=== PATIENT | male | born 1940 | race Caucasian/White ===

== ENCOUNTER 2020-06-05 15:12 | Emergency (ER) | payer BC, SELFPAY ==
[2020-06-05 15:14] VITALS: BP 110/66; PULSE 67; RESP 17; TEMP 36.8; O2SAT 97
[2020-06-05 15:19] VITALS: PULSE 65
--- NOTE | 2020-06-05 15:57 | ECG_ITS ---
Measurements Intervals [place] Rate: 61 P: 28 MI: 198 QRS: 21 QRSD: 89 T: 31 QT: 408 QTc: 411 Interpretive Statements SINUS RHYTHM EARLY PRECORDIAL R/S TRANSITION BORDERLINE ECG Electronically Signed On 06-06-2020 13:28:55 CDT by Efe Cash D.O.
--- NOTE | 2020-06-05 15:58 | ED.GENADULT ---
HPI - General Adult General Chief complaint: Unspecified Stated complaint: dizziness Time Seen by Provider: 06/05/20 15:28 History of Present Illness HPI narrative: 79 yo male BIBEMS after syncope. He was working out in the heat when he began to develop leg cramps. He then got light headed. He does not believe that he passed out, but the person who was with him at the time says that he believes that he did. He got less than 500ml NS during transport and says that he is feeling back to normal at this time. No chest pain, fever, palpitations. Related Data Home Medications Medication Instructions Recorded Confirmed amlodipine 5 mg PO DAILY 06/05/20 aspirin 81 mg PO DAILY 06/05/20 atorvastatin 20 mg PO DAILY 06/05/20 benazepril [Lotensin] 40 mg PO DAILY 06/05/20 fenofibrate 160 mg PO DAILY 06/05/20 hydrochlorothiazide 25 mg PO DAILY 06/05/20 loratadine 10 mg PO DAILY 06/05/20 metformin 500 mg PO BID 06/05/20 esbknethjbfb-otjizcwn-turdcc 1 tablet PO DAILY 06/05/20 [Multivitamin 50 Plus] niacin 500 mg PO BID 06/05/20 omega 2-deo-iba-fish oil [Fish Oil] 1 cap PO 06/05/20 vitamin B82-wmwjs acid 1 tablet PO DAILY 06/05/20 Allergies Allergy/AdvReac Type Severity Reaction Status Date / Time No Known Allergies Allergy Mild Unverified 06/05/20 15:21 Review of Systems Review of Systems: All systems reviewed & are unremarkable except as noted in HPI and below Constitutional: Constitutional: Denies chills, Denies fever(s) and Denies weakness Cardiovascular: Cardiovascular: Denies chest pain Respiratory: Respiratory: Denies dyspnea Gastrointestinal: Gastrointestinal: Denies diarrhea, Denies nausea and Denies vomiting Genitourinary: Genitourinary: Denies dysuria Musculoskeletal: Musculoskeletal: Denies back pain Neurologic: Reports dizziness and Reports syncope [facility] Social History Social History Gender identity (if verbalized by the patient): Male Exam Const: General: healthy appearing, no acute distress and alert Orientation/consciousness: patient oriented x3 HENMT: Head: normal to inspection Eyes: Pupils: Equal, round and reactive pupils present Neck: Neck: normal visual inspection and no lymphadenopathy Chest: Chest palpation & inspection: no tenderness Resp: Effort & Inspection: normal respiratory effort Auscultation: clear to auscultation bilaterally, no rales, no rhonchi and no wheezes Cardio: Jugular venous distension: no JVD Rate: regular rate Rhythm: regular rhythm Heart sounds: no murmurs GI: Inspection: non-distended GI Palp: Yes Soft to palpation and No Tenderness to palpation present (GI) Skin: General skin exam: normal color Neuro: General: patient oriented x3 and moves all extremities Speech: normal speech Extrem: General: no edema Psych: Appearance: well kempt Affect: normal affect Course Vital Signs Vital signs: Vital Signs Temperature 36.8 C 06/05/20 15:14 Pulse Rate 67 06/05/20 15:14 Respiratory Rate 17 06/05/20 15:14 Blood Pressure 110/66 06/05/20 15:14 Pulse Oximetry 97 06/05/20 15:14 Temperature 36.8 C 06/05/20 15:14 Pulse Rate 72 06/05/20 18:37 Respiratory Rate 20 06/05/20 18:37 Blood Pressure 118/73 06/05/20 18:37 Pulse Oximetry 98 06/05/20 18:37 Medical Decision Making MDM Narrative Medical decision making narrative: BNP and creatinine both very elevated. I discussed these findings with Dr. Carter. He does not think that he has a h/o renal dysfunction. He is okay with discharge. He will review his chart and follow-up with him tomorrow. Medical Records Medical records reviewed: Yes I reviewed the patient's medical records. Vital Signs Vital Signs: Vital Signs Temperature 36.8 C 06/05/20 15:14 Pulse Rate 67 06/05/20 15:14 Respiratory Rate 17 06/05/20 15:14 Blood Pressure 110/66 06/05/20 15:14 Pulse Oximetry 97 06/05/20 15:14
[2020-06-05] MEDS: SODIUM CHLORIDE 0.9% IV 1,000 ML 999 ML IV CONT (16:10)
[2020-06-05 16:23] LABS: Basophils Percent Auto 0.1 % (0.2-1.2); Eosinophils Absolute Auto 0.1 K/mm3 (0-0.3); Eosinophils Percent Auto 1.5 % (0-4.4); Hematocrit 34.9 % (42.0-52.0); Hemoglobin 11.7 g/dL (14.0-18.0); Immature Granulocyte Absolute 0.03 K/mm3 (0.00-0.031); Immature Granulocyte Percent A 0.4 % (0-0.5); Lymphocytes Absolute Auto 0.85 K/mm3 (0.9-3.2); Lymphocytes Percent Auto 12.4 % (18.3-44.2); Mean Corpuscular HGB Conc 33.5 g/dl (32-36); Mean Corpuscular Hemoglobin 33.1 pg (26-34); Mean Corpuscular Volume 98.6 fl (80-100); Mean Platelet Volume 11.4 fl (7.4-10.4); Monocytes Absolute Auto 0.6 K/mm3 (0.1-0.6); Monocytes Percent Auto 8.3 % (2.6-8.5); Neutrophils Absolute Auto 5.3 K/mm3 (1.3-6.7); Neutrophils Percent Auto 77.3 % (45.5-73.1); Platelet Count Result 217 k/mm3 (150-375); Red Blood Count 3.54 M/mm3 (4.6-6.20); Red Cell Distribution Width 13.4 % (11.5-14.5); White Blood Count 6.9 K/mm3 (4.5-10.0)
[2020-06-05 16:34] LABS: Anion Gap 14.4 mmol/L (7-16); Blood Urea Nitrogen 33 mg/dL (9-20); Calcium 9.8 mg/dL (8.4-10.2); Carbon Dioxide 27 mmol/L (22-30); Chloride 99 mmol/L (98-107); Estimated CRCL calculation 24 ml/min; Estimated Glomerular Filt Rate 23; Glucose 128 mg/dL (75-110); Potassium 4.4 mmol/L (3.4-5.0); Sodium 136 mmol/L (137-145)
[2020-06-05 17:16] VITALS: BP 116/66; PULSE 67
[2020-06-05 17:17] VITALS: BP 131/74; PULSE 74
[2020-06-05 17:19] VITALS: BP 121/67; PULSE 79
[2020-06-05 18:37] VITALS: BP 118/73; PULSE 72; RESP 20; O2SAT 98
== END 2020-06-05 18:38 | disposition home or self-care (01) ==
PROVIDERS: Emergency Provider Emergency Medicine; PCP Family Medicine Adolescent Medicine
DX: N17.9 Acute kidney failure, unspecified (principal); R55 Syncope and collapse; Z79.82 Long term (current) use of aspirin
CPT/HCPCS: 36415; 80048; 85025; 93005; 96360; 99284; J7030

== ENCOUNTER → 2022-01-12 08:14 | Outpatient (CLI) | payer BC, SELFPAY ==
--- NOTE | ~2022-01-12 | MR_ITS ---
EXAMINATION: MR lumbar spine wo con DATE: 01/12/2022 08:51 INDICATION: Right-sided sciatica. Low back pain. TECHNIQUE: Magnetic resonance imaging (MRI) of the lumbar spine was performed without intravenous con trast. Sequences included sagittal T2-weighted FSE, sagittal T2-weighted FS FSE, sagittal T1-weighted FSE, and axial T2-weighted FSE. COMPARISON: Lumbar spine MRI 09/03/2013 FINDINGS: There is 13 degrees dextroscoliosis of lumbar spine. There is 5 mm anterolisthesis of L4 on L5. There are Schmorl's nodes at multiple levels. There is moderately decreased disc height from L1- L2 through L4-L5 and severely decreased disc height at L5-S1. The distal spinal cord signal intensity is normal. The conus medullaris is at L1. There is a 1.8 cm cyst in right kidney. The following disc levels are specifically discussed: L1-L2: The disc is bulging and has an annular fissure. There is mild bilateral facet joint osteoarthr itis. There is moderate right and mild left neural foraminal stenosis. There is mild central canal st enosis. L2-L3: The disc is bulging and has an annular fissure. There is mild bilateral facet joint osteoarthr itis. There is mild right and moderate left neural foraminal stenosis. There is mild central canal st enosis. L3-L4: The disc is bulging and has an annular fissure. There is severe bilateral facet joint osteoart hritis with synovial cyst on the right. There is moderate bilateral neural foraminal stenosis. There is mild central canal stenosis at the midline. There is severe stenosis of right lateral recess and m oderate stenosis of left lateral recess. L4-L5: The disc is bulging and has an annular fissure. There is severe bilateral facet joint osteoart hritis. There is moderate bilateral neural foraminal stenosis. There is mild central canal stenosis. L5-S1: The disc is bulging and has an annular fissure. There is severe bilateral facet joint osteoart hritis. There is severe right and mild left neural foraminal stenosis. There is mild central canal st enosis. IMPRESSION: 1. Severe lumbar spondylosis, worsened from 09/03/2013. Reviewed, dictated and finalized at location A. CODE STRIPER
== END ==
PROVIDERS: PCP Family Medicine Adolescent Medicine; Visit Provider Family Medicine Adolescent Medicine
DX: M54.31 Sciatica, right side (principal); M48.061 Spinal stenosis, lumbar region without neurogenic claudication; M47.816 Spondylosis without myelopathy or radiculopathy, lumbar region
CPT/HCPCS: 72148

== ENCOUNTER → 2022-05-31 12:52 | Outpatient (CLI) | payer BC, SELFPAY ==
--- NOTE | ~2022-05-31 | MR_ITS ---
EXAMINATION: MR brain IAC wo con DATE: 05/31/2022 14:31 INDICATION: Recurrent episodes of vertigo and nausea. TECHNIQUE: Magnetic resonance imaging (MRI) of the brain, brainstem, and internal auditory canals was performed without intravenous contrast. COMPARISON: None. FINDINGS: There is no intracranial hemorrhage, acute infarction, or abnormal intracranial mass lesion . The ventricles are normal in size. There is mild mucosal thickening in the paranasal sinuses. There is a mucous retention cyst in right maxillary sinus. The internal auditory canals and inner and midd le ears are normal. The mastoid air cells are normal. The orbits are normal. IMPRESSION: 1. Normal brain. Reviewed, dictated and finalized at location A. IMPRESSION: 1. Normal brain.
== END ==
PROVIDERS: PCP Family Medicine Adolescent Medicine; Visit Provider Family Medicine Adolescent Medicine
DX: R42 Dizziness and giddiness (principal); R11.0 Nausea
CPT/HCPCS: 70551

== ENCOUNTER 2022-08-31 16:25 | Emergency (ER) | payer BC, SELFPAY ==
[2022-08-31 16:47] VITALS: BP 134/85; PULSE 82; RESP 16; TEMP 36.6; O2SAT 98
[2022-08-31 20:52] VITALS: BP 113/69; PULSE 71; RESP 16; O2SAT 100
[2022-08-31 21:31] VITALS: BP 97/69; PULSE 71; RESP 17; O2SAT 97
[2022-08-31 21:46] VITALS: BP 118/70; PULSE 70; RESP 24; O2SAT 96
[2022-08-31 22:31] VITALS: BP 111/73; PULSE 66; RESP 20; O2SAT 98
--- NOTE | 2022-08-31 22:43 | ED.MALEGU ---
HPI - Male Genitourinary General Chief complaint: Urogenital-Male <Miya Stockton PA-C - Last Filed: 09/01/22 04:41> Stated complaint: unable to urinate after surgery today <Miya Stockton PA-C - Last Filed: 09/01/22 04:41> Time Seen by Provider: 08/31/22 20:49 <JT Wang Last Filed: 09/01/22 04:41> Source: patient <JT Wang Last Filed: 09/01/22 04:41> Mode of arrival: ambulatory <JT Wang Last Filed: 09/01/22 04:41> Limitations: no limitations <JT Wang Last Filed: 09/01/22 04:41> History of Present Illness HPI Narrative: Patient is a 81-year-old male who presents to the ED with report of urinary retention. Patient reports he had an outpatient lumbar microdecompression performed at a clinic in [place], [place] this morning. He was unable to urinate initially after the surgery and was told that he did not urinate by 4 PM today, to come to an emergency room. Patient last urinated around 7:15 AM. He has tried several times, but unable to pass any urine. He denies any previous history of urinary retention, BPH. He denies any back pain, abdominal pain, nausea, vomiting, fevers, numbness, tingling, weakness. <JT Wang Last Filed: 09/01/22 04:41> Related Data Home medications: Home Medications Medication Instructions Recorded Confirmed aspirin 81 mg tablet,delayed 81 mg PO DAILY 06/05/20 01/04/22 release loratadine 10 mg tablet 10 mg PO DAILY 06/05/20 01/04/22 owmukpgebimy-dnmtsbij-dgcvka 1 tablet PO DAILY 06/05/20 01/04/22 tablet (Multivitamin 50 Plus tablet) omega 5-xcr-tzs-fish oil 1,200 mg 1 cap PO 06/05/20 01/04/22 (144 mg-216 mg) capsule (Fish Oil) vitamin B12 500 mcg-folic acid 400 1 tablet PO DAILY 06/05/ mcg tablet <Miya Stockton PA-C - Last Filed: 09/01/22 04:41> Allergies/Adverse reactions: Allergies Allergy/AdvReac Type Severity Reaction Status Date / Time No Known Allergies Allergy Mild Verified 05/16/22 09:34 <Miya Stockton PA-C - Last Filed: 09/01/22 04:41> Review of Systems Review of Systems: CONSTITUTIONAL: Denies fever, chills, or sweats. CARDIOVASCULAR: Denies chest pain. RESPIRATORY: Denies dyspnea. GASTROINTESTINAL: Denies abdominal pain, nausea, vomiting. GENITOURINARY: Reports urinary retention. Denies dysuria or hematuria. MUSCULOSKELETAL: Denies back pain. NEUROLOGICAL: Denies numbness/tingling. <Miya Stockton PA-C - Last Filed: 09/01/22 04:41> All systems reviewed & are unremarkable except as noted in HPI and below <Miya Stockton PA-C - Last Filed: 09/01/22 04:41> [facility] Past Medical History Medical History: Medical History Benign hypertension with CKD (chronic kidney disease) stage III Mixed hyperlipidemia Normal colonoscopy 07/24 Pernicious anemia Stage 3a chronic kidney disease (CKD) Type 2 diabetes mellitus with chronic kidney disease <Miya Stockton PA-C - Last Filed: 09/01/22 04:41> Surgical History Surgical History: Surgical History Hx of lumbosacral spine surgery L4/L5 microdecompression, 01/2014 <Miya Stockton PA-C - Last Filed: 09/01/22 04:41> Family History Family History: Family History Father Acute myocardial infarction Cerebrovascular accident Heart disease Mother Carcinoma of colon Other Diabetes mellitus <Miya Stockton PA-C - Last Filed: 09/01/22 04:41> Social History Social History: Social History Smoking status: Former smoker Tobacco type: cigarettes Second hand tobacco smoke exposure: No Alcohol intake: current Drinks per week: 5 Substance use
[2022-08-31 22:46] VITALS: BP 105/69; PULSE 67; RESP 15; O2SAT 96
[2022-09-01 00:34] LABS: Add Urine Microscopic? YES; Appearance Urine Cloudy (Clear); Bacteria Urine Trace /hpf; Bilirubin Urine Negative (Negative); Blood Urine Negative (Negative); Color Urine Yellow (Yellow); Glucose Urine UA Negative (Negative); Ketones Urine Negative (Negative); Leukocyte Esterase Ur Negative LEU/UL (Negative); Nitrate Urine Negative (Negative); Protein Urine 1+ mg/dL (Negative); RBC Urine 0-2 /hpf (0-2); Specific Grav Ur 1.023 (1.001-1.035); Squamous Epithelial Cell Urine Rare /hpf (Few); Urobilinogen Urine Negative mg/dL (<2.0); WBC Urine 0-3 /hpf
--- NOTE | 2022-09-04 23:57 | PC.NURSE ---
Noted holt cath placed at this time as patient was unable to void on his own after straight cath.
== END 2022-09-01 01:56 | disposition home or self-care (01) ==
PROVIDERS: Physician Assistant; Emergency Provider Emergency Medicine; PCP Family Medicine Adolescent Medicine
DX: R33.9 Retention of urine, unspecified (principal); I12.9 Hypertensive chronic kidney disease with stage 1 through stage 4 chronic kidney disease, or unspecified chronic kidney disease; E78.5 Hyperlipidemia, unspecified; N18.31 Chronic kidney disease, stage 3a; E11.22 Type 2 diabetes mellitus with diabetic chronic kidney disease; Z87.891 Personal history of nicotine dependence; Z79.84 Long term (current) use of oral hypoglycemic drugs; Z79.82 Long term (current) use of aspirin
CPT/HCPCS: 51701; 51702; 81001; 99283

== ENCOUNTER 2022-09-01 12:36 | Emergency (ER) | payer BC, SELFPAY ==
--- NOTE | 2022-09-01 12:42 | ED.GENADULT ---
HPI - General Adult General Chief complaint: Urogenital-Male Stated complaint: catheter placed last night-not draining Time Seen by Provider: 09/01/22 12:42 History of Present Illness HPI narrative: Patient is a 81-year-old male presenting with complaints about a Gomez catheter. Patient had lower back surgery several days ago and then had difficulty voiding so he was seen here yesterday. A Gomez catheter was placed with plans for him to follow-up with urology. Unfortunately, the patient did not have any urinary output from the catheter overnight. This morning it continued to not drain and he started having suprapubic fullness and an urge to void. He denies fevers, back pain, abdominal pain, nausea or vomiting, diarrhea. Related Data Home Medications Medication Instructions Recorded Confirmed aspirin 81 mg tablet,delayed 81 mg PO DAILY 06/05/20 01/04/22 release loratadine 10 mg tablet 10 mg PO DAILY 06/05/20 01/04/22 alnczryktogi-lnkfdksn-uwakij 1 tablet PO DAILY 06/05/20 01/04/22 tablet (Multivitamin 50 Plus tablet) omega 7-fhc-vqd-fish oil 1,200 mg 1 cap PO 06/05/20 01/04/22 (144 mg-216 mg) capsule (Fish Oil) vitamin B12 500 mcg-folic acid 400 1 tablet PO DAILY 06/05/20 mcg tablet Allergies Allergy/AdvReac Type Severity Reaction Status Date / Time No Known Allergies Allergy Mild Verified 05/16/22 09:34 Review of Systems Review of Systems: All systems reviewed & are unremarkable except as noted in HPI and below PMFSH Past Medical History Medical History Benign hypertension with CKD (chronic kidney disease) stage III Mixed hyperlipidemia Normal colonoscopy 07/24 Pernicious anemia Stage 3a chronic kidney disease (CKD) Type 2 diabetes mellitus with chronic kidney disease Surgical History Surgical History Hx of lumbosacral spine surgery L4/L5 microdecompression, 01/2014 Family History Family History Father Acute myocardial infarction Cerebrovascular accident Heart disease Mother Carcinoma of colon Other Diabetes mellitus Social History Social History Smoking status: Former smoker Tobacco type: cigarettes Second hand tobacco smoke exposure: No Alcohol intake: current Drinks per week: 5 Substance use: never Substance use type: does not use Gender identity (if verbalized by the patient): Male Sexual Orientation (if Verbalized by the Patient): Straight or Heterosexual Spiritual care concerns: No Agree to blood products: Yes Exam Narrative: GENERAL: Well-appearing, well-nourished, and in no acute distress. HEAD: Normocephalic, atraumatic. EYES: PERRLA and EOMI. ENT: Nares clear, no rhinorrhea or epistaxis. Mucous membranes moist. NECK: Supple. CHEST: Clear to auscultation. No respiratory distress. HEART: Regular rate and rhythm. No murmur heard. Normal peripheral pulses. ABDOMEN: Soft, nontender, nondistended, normal active bowel sounds. : Gomez catheter in place, now draining clear yellow urine EXTREMITIES: Normal range of motion. No edema. SKIN: Warm, dry, no rash. NEURO: No focal deficits. Alert and oriented x3. PSYCH: Normal mood and affect. Course Course Emergency Course: Patient is a 81-year-old male presenting with Gomez catheter malfunction. Vitals within normal limits. Patient is well-appearing and in no acute distress. It appears the leg bag was connected incorrectly yesterday which is why it was not draining. The bag was replaced and 1100 cc of yellow urine was drained. Patient states he feels much better. Gomez continues to drain at this time. Patient will follow up with urology on Saturday. Appropriate return precautions given. Patient voiced understanding and is agreeable with plan. Discharged in stable cond
[2022-09-01 12:49] VITALS: BP 112/60; PULSE 67; RESP 16; TEMP 36.4; O2SAT 99
--- NOTE | 2022-09-01 12:55 | PC.NURSE ---
leg bag noted to be placed upside down. bag positioned correctly and immediate urine return noted. pt notes immediate relief.
== END 2022-09-01 13:30 | disposition home or self-care (01) ==
LOC: ANHED 13:33
PROVIDERS: Emergency Provider Emergency Medicine; PCP Family Medicine Adolescent Medicine
DX: Z46.6 Encounter for fitting and adjustment of urinary device (principal); E11.22 Type 2 diabetes mellitus with diabetic chronic kidney disease; I12.9 Hypertensive chronic kidney disease with stage 1 through stage 4 chronic kidney disease, or unspecified chronic kidney disease; N18.31 Chronic kidney disease, stage 3a; D51.0 Vitamin B12 deficiency anemia due to intrinsic factor deficiency; E78.2 Mixed hyperlipidemia; Z79.82 Long term (current) use of aspirin; Z87.891 Personal history of nicotine dependence; Z79.84 Long term (current) use of oral hypoglycemic drugs
CPT/HCPCS: 99282

== ENCOUNTER 2023-10-08 14:01 | Outpatient (CLI) | payer BC, SELFPAY ==
--- NOTE | ~2023-10-08 | CT_ITS ---
EXAMINATION: CT facial bones w con DATE: 10/08/2023 14:43 INDICATION: Left preauricular lesion. TECHNIQUE: Computed tomography (CT) of the facial bones and maxillofacial region was performed with 7 5 mL Omnipaque 350 intravenous contrast. Automated exposure control and iterative reconstruction tech [employer] were employed. The dose-length product was 315.51 mGy-cm. COMPARISON: Brain MRI 05/31/2022 FINDINGS: Anterior to the left external auditory canal, there is a 2.8 x 1.4 x 2.0 cm mass with irreg ular margin that abuts the superior aspect of the left parotid gland. There is rightward deviation of the nasal septum. There is mild mucosal thickening in the paranasal sinuses. There are changes of an terior fusion procedure in cervical spine. IMPRESSION: 1. 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 Consider ultrasound-guided fine needle aspiration. Reviewed, dictated and finalized at location A. EMS SUPPORT OFFICER IMPRESSION: 1. 2.8 x 1.4 x 2.0 cm mass anterior to the left external auditory canal suspici ous for neoplasm, new from 05/31/22. Consider ultrasound-guided fine needle aspi ration.
[2023-10-08 14:37] LABS: Estimated Glomerular Filt Rate 53
== END 2023-10-08 14:02 | disposition home or self-care (01) ==
PROVIDERS: PCP Family Medicine Adolescent Medicine; Visit Provider Plastic Surgery
DX: D48.5 Neoplasm of uncertain behavior of skin (principal); C44.91 Basal cell carcinoma of skin, unspecified
CPT/HCPCS: 70487; Q9967

== ENCOUNTER 2023-11-07 14:27 | Outpatient (CLI) | payer BC, SELFPAY ==
--- NOTE | ~2023-11-07 | XR_ITS ---
XR_CERV2-3V_CR 11/07/2023 14:44 Indication: Postop 8 weeks. Arthrodesis evaluation. Procedure: 5 views cervical spine Comparison: No prior studies for comparison. Findings: Status post anterior cervical fusion and discectomy at C3-5. Hardware appears to be intact. There is moderate multilevel uncinate and facet hypertrophy. There is disc narrowing at all cervical spine levels except C2-3. No prevertebral soft tissue abnormality. Mild levocurvature of the cervica l spine. Lung apices are normal. Odontoid process is normal. Impression: 1: Severe cervical spondylosis with anterior cervical fusion and discectomy at C3-5. Reviewed, dictated and finalized at location A. R MAKING SUPERVISOR Impression: 1: Severe cervical spondylosis with anterior cervical fusion and discectomy at C3-5.
== END 2023-11-07 14:28 | disposition home or self-care (01) ==
LOC: ANHIMG 14:31
PROVIDERS: PCP Family Medicine Adolescent Medicine; Visit Provider Neurological Surgery
DX: Z98.1 Arthrodesis status (principal); M47.892 Other spondylosis, cervical region
CPT/HCPCS: 72040

== ENCOUNTER 2024-02-19 11:37 | Outpatient (CLI) | payer BC, SELFPAY ==
--- NOTE | ~2024-02-19 | XR_ITS ---
EXAMINATION:XR_CERV2-3V_CR DATE: 02/19/2024 12:08 INDICATION: Disease of spinal cord with prior cervical surgery. TECHNIQUE: AP, lateral, lateral swimmers and odontoid views of the cervical spine are provided. COMPARISON: 11/07/2023 FINDINGS: Instrumented C3-C5 anterior spinal fusion with interbody bone graft cages at both levels and anterior plate-screw fixation. 2-3 mm anterolisthesis C4 on C5 and 2 mm retrolisthesis C5 on C6. This appears to contribute to mild stenosis of the osseous central canal at both levels. Odontoid is intact with moderate atlantoaxial osteoarthritis. Vertebral body heights are normal. Moderate disc height loss a t C5-C6 and moderate to severe disc height loss at C6-C7 with endplate osteophytes at both levels. Bi lateral multilevel moderate to severe cervical facet osteoarthritis most prominent on the right at C3 -C4 through C5-C6 and on the left at C3-C4 and C4-C5. Multiple surgical clips at the left sides of th e face and neck. Prevertebral soft tissues are normal. Visualized portion of the upper lungs are lidia r. IMPRESSION: 1. Moderate to severe cervical spondylosis with instrumented C3-C5 anterior spinal fusion. Reviewed, dictated and finalized at location B. IMPRESSION: 1. Moderate to severe cervical spondylosis with instrumented C3-C5 anterior spi nal fusion.
== END 2024-02-19 11:38 | disposition home or self-care (01) ==
PROVIDERS: PCP Family Medicine Adolescent Medicine; Visit Provider Neurological Surgery
DX: G95.9 Disease of spinal cord, unspecified (principal); M43.02 Spondylolysis, cervical region; Z98.1 Arthrodesis status
CPT/HCPCS: 72040

== ENCOUNTER 2024-08-27 15:44 | Outpatient (CLI) | payer BC, SELFPAY ==
--- NOTE | ~2024-08-27 | XR_ITS ---
EXAMINATION: XR_CERV2-3V_CR DATE: 08/27/2024 16:05 INDICATION: Neck pain. TECHNIQUE: 4 views of cervical spine on 5 radiographs were obtained. COMPARISON: Cervical spine radiographs 02/19/2024 FINDINGS: There is 11 degrees levoscoliosis of cervicothoracic spine. There are changes of anterior f usion procedure from C3 to C5 with anterior plate and screws and interbody devices. There is 2 mm ant erolisthesis of C4 on C5 and 2 mm retrolisthesis of C5 on C6. Vertebral body heights are normal. Ther e is moderately decreased disc height at C5-C6 and severely decreased disc height at C6-C7. There is multilevel severe facet joint osteoarthritis. There is mild central canal stenosis at C4-C5 and C5-C6 . No prevertebral soft tissue swelling. IMPRESSION: 1. Severe cervical spondylosis. 2. Anterior fusion procedure from C3 to C5. 3. Cervicothoracic levoscoliosis. Reviewed, dictated and finalized at location A.
== END 2024-08-27 15:45 | disposition home or self-care (01) ==
PROVIDERS: PCP Family Medicine Adolescent Medicine; Visit Provider Neurological Surgery
DX: M47.812 Spondylosis without myelopathy or radiculopathy, cervical region (principal); Z98.1 Arthrodesis status; M41.83 Other forms of scoliosis, cervicothoracic region
CPT/HCPCS: 72040